=== PATIENT | female | born 1970 | race African-American/Black ===

== ENCOUNTER 2024-03-30 10:58 | Day surgery (SDC) | payer OTHER ==
[2024-03-23 15:28] VITALS: BMI 27.0
[2024-03-30] MEDS ORDERED: PROPOFOL 40 ML ONE (13:54)
[2024-03-30] MEDS ORDERED: PHENYLEPHRINE-NS 100 MCG/ML 10 ML SYRINGE ONE (14:17)
[2024-03-30] MEDS ORDERED: PROPOFOL 20 ML ONE (14:19)
== END 2024-03-30 15:09 | disposition home or self-care (01) ==
LOC: CSHSDC 10:58
PROVIDERS: ATTEND Surgery
PROC: 0DBK8ZZ Excision of Ascending Colon, Via Natural or Artificial Opening Endoscopic (ICD-10-PCS; principal; 2024-03-30)
DX: Z12.11 Encounter for screening for malignant neoplasm of colon (principal); D12.2 Benign neoplasm of ascending colon; F41.9 Anxiety disorder, unspecified; I10 Essential (primary) hypertension; Z91.013 Allergy to seafood; Z79.899 Other long term (current) drug therapy; Z79.82 Long term (current) use of aspirin
CPT/HCPCS: 88305; J2704